=== PATIENT | male | born 1980 | race African-American/Black ===

== ENCOUNTER 2017-03-10 13:43 | Emergency (ER) | payer MEDICAID ==
[~2017-03-10] VITALS: Ht 188 cm; Wt 122.0 kg
[2017-03-10] MEDS ORDERED: SILVER NITRATE APPLICATOR 1 EA STICK TP ONE (16:45)
[2017-03-10] MEDS ORDERED: OxyCODONE HCL/ACETAMINOPHEN 5-325 MG TABLET PO ONE (16:45)
[2017-03-10 16:57] VITALS: BP 129/71
== END 2017-03-10 17:10 | disposition home or self-care (01) ==
LOC: EMS 13:46
DX: S61.317A Laceration without foreign body of left little finger with damage to nail, initial encounter (principal); Z87.891 Personal history of nicotine dependence; W45.8XXA Other foreign body or object entering through skin, initial encounter; Y93.89 Activity, other specified; Y92.89 Other specified places as the place of occurrence of the external cause; Y99.8 Other external cause status
CPT/HCPCS: 99283; Z7610

== ENCOUNTER 2017-05-07 18:58 | Emergency (ER) | payer MEDICAID ==
[~2017-05-07] VITALS: Ht 190.5 cm; Wt 126.4 kg
[2017-05-07] MEDS ORDERED: PROPARACAINE HCL 0.5% 15 ML OPHTHALMIC SOLUTION OD ONE (23:00)
[2017-05-08 01:48] VITALS: BP 129/89
== END 2017-05-08 01:46 | disposition home or self-care (01) ==
LOC: EMS 18:59
DX: H20.00 Unspecified acute and subacute iridocyclitis (principal); H53.141 Visual discomfort, right eye; F17.210 Nicotine dependence, cigarettes, uncomplicated
CPT/HCPCS: 70480; 99284

== ENCOUNTER 2017-06-02 20:05 | Emergency (ER) | payer MEDICAID ==
[~2017-06-02] VITALS: Ht 190.5 cm; Wt 122.7 kg
[2017-06-02] MEDS ORDERED: KETOROLAC TROMETHAMINE 60 MG/2 ML VIAL IM ONE (22:15)
[2017-06-02] MEDS ORDERED: DIAZEPAM 5 MG TABLET PO ONE (22:15)
[2017-06-02 23:37] VITALS: BP 135/79
== END 2017-06-02 23:39 | disposition home or self-care (01) ==
LOC: EMS 20:05
DX: S33.9XXA Sprain of unspecified parts of lumbar spine and pelvis, initial encounter (principal); S13.4XXA Sprain of ligaments of cervical spine, initial encounter; F17.210 Nicotine dependence, cigarettes, uncomplicated; V49.49XA Driver injured in collision with other motor vehicles in traffic accident, initial encounter; Y93.01 Activity, walking, marching and hiking; Y92.89 Other specified places as the place of occurrence of the external cause; Y99.9 Unspecified external cause status
CPT/HCPCS: 96372; 99283; J1885

== ENCOUNTER 2017-11-11 12:40 | Emergency (ER) | payer MEDICAID ==
[~2017-11-11] VITALS: Ht 190.5 cm; Wt 111.8 kg
[2017-11-11] MEDS ORDERED: ONDANSETRON HCL 4 MG TABLET PO ONE (17:15)
[2017-11-11] MEDS ORDERED: IBUPROFEN 800 MG TABLET PO ONE (17:15)
[2017-11-11 17:30] LABS: INFLUENZA TYPE A NEGATIVE FOR TYPE A (NEGATIVE); INFLUENZA TYPE B NEGATIVE FOR TYPE B (NEGATIVE)
[2017-11-11 18:00] VITALS: BP 135/82
== END 2017-11-11 18:05 | disposition home or self-care (01) ==
LOC: EMS 12:41
DX: J06.9 Acute upper respiratory infection, unspecified (principal); J02.9 Acute pharyngitis, unspecified; M79.1 Myalgia; F17.210 Nicotine dependence, cigarettes, uncomplicated
CPT/HCPCS: 87430; 87804; 99284; Q0162